=== PATIENT | male | born 1965 | race Two or more races ===

== ENCOUNTER 2019-09-18 09:56 | Emergency (ER) | payer OTHER ==
[~2019-09-18] VITALS: Ht 172.7 cm; Wt 90.7 kg
== END 2019-09-18 14:12 | disposition home or self-care (01) ==
LOC: ER 09:56
DX: N20.1 Calculus of ureter (principal)

== ENCOUNTER 2020-12-07 12:03 | Emergency (ER) | payer OTHER ==
[~2020-12-07] VITALS: Ht 170.2 cm; Wt 89.4 kg
== END 2020-12-07 16:12 | disposition home or self-care (01) ==
LOC: ER 12:03
DX: R00.2 Palpitations (principal); R07.89 Other chest pain; R06.02 Shortness of breath; F41.8 Other specified anxiety disorders

== ENCOUNTER 2025-04-05 06:34 | Day surgery (SDC) | payer OTHER ==
[2025-04-05] MEDS ORDERED: fentaNYL CITRATE 50 MCG/ML AMPUL IV ONE (11:30)
[2025-04-05] MEDS ORDERED: MIDAZOLAM HCL 2 MG/2 ML VIAL IV ONE (11:30)
[2025-04-05] MEDS ORDERED: DIPHENHYDRAMINE HCL 50 MG/ML VIAL 1ML IV ONE (11:30)
== END 2025-04-05 13:05 | disposition home or self-care (01) ==
LOC: AMB-ENDOS 06:34
PROVIDERS: ATTEND Internal Medicine Gastroenterology
DX: D12.2 Benign neoplasm of ascending colon (principal); D12.3 Benign neoplasm of transverse colon; K63.5 Polyp of colon